=== PATIENT | female | born 1980 | race Caucasian/White ===

== ENCOUNTER 2022-04-12 10:34 | Day surgery (SDC) | payer BC ==
[~2022-04-12] VITALS: Ht 165.1 cm; Wt 65.6 kg
[2022-04-12] VITALS (8 sets, daily range): BP systolic 101–122; BP diastolic 58–83; PULSE 88–120; TEMP 97.8–98.2
[2022-04-12] MEDS ORDERED: SYNTHROID0.075 MG/T PO (11:56)
[2022-04-12] MEDS ORDERED: CYTOMEL 5MC5 MCG/TAB PO (11:56)
[2022-04-12] MEDS ORDERED: GLUMETZA500 MG PO (11:57)
[2022-04-12] MEDS ORDERED: SINGULAIR 110 MG/TAB PO (11:58)
[2022-04-12] MEDS ORDERED: NEURONTIN300 MG/CAP PO (11:58)
[2022-04-12] MEDS ORDERED: K-TAB20 PO (11:59)
[2022-04-12] MEDS ORDERED: FOLIC ACID 40400 MCG PO (11:59)
[2022-04-12] MEDS ORDERED: LEVBID0.375 MG PO (12:00)
[2022-04-12] MEDS ORDERED: PROTONIX 40MG T40 MG PO (12:01)
[2022-04-12] MEDS ORDERED: LASIX 20MG TABL20 MG PO (12:01)
[2022-04-12] MEDS ORDERED: ZYRTEC 10MG10 MG PO (12:02)
[2022-04-12] MEDS ORDERED: MAG-OX 400400 MG/TAB PO (12:03)
[2022-04-12] MEDS ORDERED: VITAMIN K2100 MCG PO (12:07)
[2022-04-12] MEDS ORDERED: VITAMIN B12 1541 TAB PO (12:07)
[2022-04-12] MEDS ORDERED: UBRELVY50 MG PO (12:08)
[2022-04-12] MEDS ORDERED: PROBIOTIC ACID1 EAC3 PO (12:09)
[2022-04-12] MEDS ORDERED: LOMOTIL 0.025 M1 TAB PO (12:10)
[2022-04-12] MEDS ORDERED: VITAMIN C500 MG PO (12:11)
[2022-04-12] MEDS ORDERED: PHARMASSURE ZIN50 MG PO (12:11)
[2022-04-12] MEDS ORDERED: MULTI-VITAMIN W1 TA1 PO (12:12)
[2022-04-12] MEDS ORDERED: COLESTID 1GM1 G PO (12:14)
--- NOTE | 2022-04-12 15:20 | NUR ---
Pt. arrived to the floor from PACU. Pt. is a&XO3, assessment complete. IV to rt. forearm patent. Pt. denies pain. Abd. incisions CDI. Pt. denies needs.
[2022-04-13 04:23] VITALS: BP 104/61; PULSE 76; TEMP 98
--- NOTE | 2022-04-13 07:20 | NUR ---
PT requested morphine and zofran for pain and nausea last evening @2009, no further NV reported, pain controlled this am with po pain meds and IV toradol. up ad bladimir in room, using kpad to abd for discomfort. incisions to abd CDI x6, INT to patent/secure
[2022-04-13 07:36] VITALS: BP 97/59; PULSE 76; TEMP 98
--- NOTE | 2022-04-13 08:50 | NUR ---
Pt. sitting up in bed. Pt. is A&OX3, assessment complete. INT to lt. hand patent. Pt. denies pain at this time. Abd. incisions well approximated. Pt. denies further needs, call light within reach.
[2022-04-13] MEDS ORDERED: NORCO 325 MG-51 TAB PO (11:12)
[2022-04-13 11:58] VITALS: BP 98/57; PULSE 72; TEMP 98.5
--- NOTE | 2022-04-13 12:45 | NUR ---
Pt. has met discharge criteria. INT discontinued from lt. hand. Reviewed and gave pt. discharge instructions, new meds, home meds, follow up appointments, and health summary. Pt. voices understanding. Pt. escorted out by wheel chair.
== END 2022-04-13 13:00 | disposition home or self-care (01) ==
LOC: SDCO 10:34 → SURG 15:20 → SDCO 04-13 13:00
DX: K21.9 Gastro-esophageal reflux disease without esophagitis (principal); K66.0 Peritoneal adhesions (postprocedural) (postinfection); Z79.899 Other long term (current) drug therapy
CPT/HCPCS: OP; A9284; J0690; J1100; J1170; J1650; J1885; J2270; J2405; J2704; J3010; J3230; J7120

== ENCOUNTER → 2022-09-15 | Outpatient (CLI) | payer BC ==
[~2022-09-15] MED LIST: COLESTID 1GM1 G PO; CYTOMEL 5MC5 MCG/TAB PO; FOLIC ACID 40400 MCG PO; GLUMETZA500 MG PO; K-TAB20 PO; LASIX 20MG TABL20 MG PO; LEVBID0.375 MG PO; LOMOTIL 0.025 M1 TAB PO; MAG-OX 400400 MG/TAB PO; MULTI-VITAMIN W1 TA1 PO; NEURONTIN300 MG/CAP PO; NORCO 325 MG-51 TAB PO; PHARMASSURE ZIN50 MG PO; PROBIOTIC ACID1 EAC3 PO; PROTONIX 40MG T40 MG PO; SINGULAIR 110 MG/TAB PO; SYNTHROID0.075 MG/T PO; UBRELVY50 MG PO; VITAMIN B12 1541 TAB PO; VITAMIN C500 MG PO; VITAMIN K2100 MCG PO; ZYRTEC 10MG10 MG PO
== END ==
LOC: COL.RAD 09-05 11:00
DX: K21.9 Gastro-esophageal reflux disease without esophagitis (principal); R13.10 Dysphagia, unspecified

== ENCOUNTER 2022-09-30 11:01 | Day surgery (SDC) | payer BC ==
[~2022-09-30] VITALS: Ht 165.1 cm; Wt 58.7 kg
[2022-09-30] MEDS ORDERED: CROLOM 10 ML10 ML (12:28)
[2022-09-30] MEDS ORDERED: XYZAL5 MG PO (12:30)
[2022-09-30 12:33] VITALS: BP 124/95; PULSE 99; TEMP 98
[2022-09-30 13:40] VITALS: BP 110/89; PULSE 82; TEMP 98
--- NOTE | 2022-09-30 13:40 | NUR ---
1340 PATIENT RETURNS TO ROOM 3 VIA CART. PATIENT IS ALERT AND ORIENTED. PATIENTS IS IN ROOM. PATIENT AMBULATES TO RECLINER WITH THE ASSISTANCE OF 2 NURSES. RESPIRATIONS EVEN AND UNLABORED. VITAL SIGNS OBTAINED. PATIENT REQUESTED PUDDING AND A SPRITE. NO DIFFICULTIES SWALLOWING. 1350 THIS NURSE REVIEWED DISCHARGE INSTRUCTIONS WITH PATIENT AND PATIENT . BOTH VERBALIZED UNDERSTANDING. 1355 DISCONTINUED IV FROM RIGHT WRIST WITH NO COMPLICATIONS. 1417 DOCTOR IN TO SPEAK WITH PATIENT AND PATIENT . 1430 PATIENT DISCHARGES FROM UNIT VIA WHEELCHAIR IN STABLE CONDITION TO PERSONAL CAR.
[2022-09-30 13:55] VITALS: BP 115/97; PULSE 84
[2022-09-30 14:00] VITALS: BP 129/88; PULSE 88
== END 2022-09-30 14:30 | disposition home or self-care (01) ==
LOC: SDCO 11:01
DX: K22.2 Esophageal obstruction (principal); Z98.84 Bariatric surgery status
CPT/HCPCS: C1726; J2704; J7120

== ENCOUNTER 2022-10-25 07:58 | Outpatient (RCR) | payer BC ==
[~2022-10-25 07:58] MED LIST changes: +CROLOM 10 ML10 ML; +XYZAL5 MG PO
== END 2022-11-04 | disposition home or self-care (01) ==
LOC: WSST
DX: R13.12 Dysphagia, oropharyngeal phase (principal)

== ENCOUNTER → 2022-11-02 | Outpatient (CLI) | payer BC | LOC: COL.RAD 15:38 | DX: K21.9 Gastro-esophageal reflux disease without esophagitis (principal); R13.10 Dysphagia, unspecified ==